=== PATIENT | female | born 1960 | race Hispanic/Latino ===

== ENCOUNTER → 2017-06-28 | Day surgery (SDC) | payer BC ==
[~2017-06-28] MED LIST: FENTANYL CITRATE/PF 100MCG/2 ML INJ ONE; HYOSCYAMINE SULFATE 0.5 MG/ML AMP ONE; LIDOCAINE HCL 2% LOCAL INJ 5 ML SDV VIAL INJ ONE; MIDAZOLAM HCL 2 MG/2 ML VIAL ONE; PROPOFOL IV EMULSION 10 MG/ML 50 ML VIAL ONE; Z.0.ATENOLOL25 MG PO; Z.0.PREMARIN0.625 MG PO; Z.0.SYNTHROID175 MCG PO; [UNRECOGNIZED DRUG - OTHER] PO
--- NOTE | 2017-06-29 04:45 | Operative Report ---
DATE OF PROCEDURE: June 28, 2017 REFERRING PHYSICIAN: Dr. Chikis Spencer. PROCEDURE PERFORMED: Esophagogastroduodenoscopy with biopsies. INDICATIONS FOR EGD: Upper abdominal pain, weight loss. MEDICATION: Patient was done under MAC. Please see anesthesiologist's note. PROCEDURE: With patient in left lateral decubitus position, flexible fiberoptic Olympus gastroscope was introduced into the esophagus under direct visualization without any difficulty. There were some patchy erythema noted in the distal esophagus. The scope was then advanced with ease into the stomach, traversing a small hiatal hernia. Mucosa overlying the antrum revealed some diffuse intense erythema and moderate to marked edema and biopsies were obtained and sent to stain for H. pylori. The mucosa overlying the body was primarily atrophic with some scattered islands of normal mucosa. Biopsies were obtained. The pylorus was of normal contour and shape. It was intubated with ease and the scope was advanced all way to the 2nd portion of the duodenum. The scope was then withdrawn slowly. Mucosa overlying the proximal 2nd portion and the duodenal bulb appeared to be within normal limits. The scope was then withdrawn back into the stomach and retroflexed. Mucosa overlying the fundus and the cardia appeared to be within normal limits. The scope was then straightened out. The stomach was decompressed. The scope was subsequently withdrawn. Patient tolerated the procedure well. IMPRESSIONS 1. Distal esophagitis, mild. 2. Small hiatal hernia. 3. Gastritis, antrum moderately severe, biopsied and sent to stain for Helicobacter pylori. 4. Atrophic gastritis, body. Biopsies were obtained. PLAN: Follow up histology. Initiate Protonix 40 mg 1 p.o. a.c. b.i.d. Carafate 1 g p.o. a.c. t.i.d. and nightly. Check antiparietal cell antibody and PAO. Job#: [id number] CF cc:CHIKIS SPENCER MD
== END | disposition home or self-care (01) ==
LOC: OR 11:20
PROVIDERS: ATTEND Internal Medicine Gastroenterology
DX: K29.50 Unspecified chronic gastritis without bleeding (principal); K63.5 Polyp of colon; K20.9 Esophagitis, unspecified; K21.9 Gastro-esophageal reflux disease without esophagitis; K44.9 Diaphragmatic hernia without obstruction or gangrene; R63.4 Abnormal weight loss; E03.9 Hypothyroidism, unspecified; I10 Essential (primary) hypertension; F32.9 Major depressive disorder, single episode, unspecified; Z01.810 Encounter for preprocedural cardiovascular examination
CPT/HCPCS: 43239; 86039; 93005; J1980; J2001; J2250

== ENCOUNTER → 2018-10-17 | Day surgery (SDC) | payer BC ==
[~2018-10-17] MED LIST changes: +DEXILANT60 MG PO; -HYOSCYAMINE SULFATE 0.5 MG/ML AMP ONE; +LEVOTHYROXINE100 MC1 PO; -LIDOCAINE HCL 2% LOCAL INJ 5 ML SDV VIAL INJ ONE
[2018-10-17 14:45] VITALS: BP 126/98
--- OUTSIDE RECORDS SUMMARY | 2018-10-19 15:47 | XMS REPORT | Summary of Care ---
Author Author [facility] Organization [facility] Address Unknown Phone Unavailable Encounter HQ David(FIN) [id number] Date(s): 06/27/17 - 07/26/17 [facility] [address] [place], [place] [address] [phone] Encounter Diagnosis Personal history of cervical dysplasia (Final) - 08/01/17 Hypothyroidism, unspecified (Final) - Discharge Disposition: Home or Self Care Attending Physician: Jessica Roldan MD Referring Physician: Jessica Roldan MD Vital Signs Most recent to 1 2 oldest [Reference Range]: Height 165 cm 166 cm (07/25/17 2:24 PM) (06/27/17 10:37 AM) Temperature Oral 97.9 DegF 97.9 DegF [96.4-99.1 DegF] (07/25/17 2:24 PM) (06/27/17 10:37 AM) Blood Pressure 115/78 mmHg 152/80 mmHg [90-140/60-90 mmHg] (07/25/17 2:24 PM) *HI* (06/27/17 10:37 AM) Respiratory Rate 20 BRMIN [14-20 BRMIN] (07/25/17 2:24 PM) Peripheral Pulse 67 bpm 57 bpm Rate [60-100 bpm] (07/25/17 2:24 PM) *LOW* (06/27/17 10:37 AM) Weight 69.636 kg 70.273 kg (07/25/17 2:24 PM) (06/27/17 10:37 AM) Body Mass Index 25.58 m2 25.5 m2 (07/25/17 2:24 PM) (06/27/17 10:37 AM) Problem List Condition Effective Dates Status Health Status Informant Anemia(Confirmed) Resolved Chronic Active gastritis(Confirmed) Thyroid Active disease(Confirmed) High blood Resolved pressure(Confirmed) Flu(Confirmed) Resolved Vaginal Active itching(Confirmed) Vaginal Active discharge(Confirmed) Vaginal Active discharge(Confirmed) Allergies, Adverse Reactions, Alerts Substance Reaction Severity Status penicillins Active vancomycin Active Medications dicyclomine 20 mg, PO, TID, 0 Refill(s) Start Date: 06/27/17 Status: Ordered dicyclomine 20 mg, 0 Refill(s) Start Date: 06/27/17 Status: Ordered hydrOXYzine 10 mg, PO, Bedtime, Three 10 mg tablets at bedtime, 0 Refill(s) Start Date: 06/27/17 Status: Ordered levothyroxine 200 mcg (0.2 mg) oral tablet 200 microgram=1 tab, PO, Every Other Day, 0 Refill(s) Start Date: 06/27/17 Status: Ordered naproxen 500 mg=1 tab, PO, BID, PRN Pain, 0 Refill(s) Start Date: 06/27/17 Status: Ordered nortriptyline 50 mg oral capsule 50 mg=1 cap, PO, Daily, 0 Refill(s) Start Date: 06/27/17 Status: Ordered spironolactone 25 mg oral tablet 25 mg=1 tab, PO, TID, 0 Refill(s) Start Date: 06/27/17 Status: Ordered Results No data available for this section Immunizations No data available for this section Procedures Procedure Date Related Diagnosis Body Site Status Upper GI endoscopy 06/28/17 Completed Hysterectomy Completed Social History Social History Type Response Substance Abuse Use: None. Alcohol Never Smoking Status Never smoker; Ready to change: No; Concerns about tobacco use in household: No; Exposure to Tobacco Smoke None; Cigarette Smoking Last 365 Days No; Reg Smoking Cessation Counseling No1 entered on: 09/26/17 1Pt has never smoked Assessment and Plan No data available for this section
--- OUTSIDE RECORDS SUMMARY | 2018-10-19 15:47 | XMS REPORT | Summary of Care ---
Author Organization Unknown Address Unknown Phone Unavailable Encounter HQ Encntr_alitrevor([facility]) [id number] Date(s): 12/02/14 - 12/02/14 [facility] Outpatient Imaging - [address] [address]- [facility] [phone] Discharge Disposition: Home Physician Attending: Sidney Ford MD Vital Signs No data available for this section Problem List No data available for this section Allergies, Adverse Reactions, Alerts No data available for this section Medications No data available for this section Results No data available for this section Immunizations No data available for this section Procedures No data available for this section Social History No data available for this section Assessment and Plan No data available for this section
--- OUTSIDE RECORDS SUMMARY | 2018-10-19 15:47 | XMS REPORT | Summary of Care ---
Author Author [facility] Organization [facility] Address Unknown Phone Unavailable Encounter HQ David(FIN) [id number] Date(s): 06/27/17 - 07/26/17 [facility] [address] [place], [place] [address] [place] [address] Encounter Diagnosis Personal history of cervical dysplasia [...]
--- OUTSIDE RECORDS SUMMARY | 2018-10-19 15:47 | XMS REPORT | Summary of Care ---
Author Author [facility] Address Unknown Phone Unavailable Encounter HQ Santantr_chiragtrevor([facility]) [id number] Date(s): 12/23/14 - 01/21/15 [facility] Discharge Disposition: Home Attending Physician: Sidney Ford MD Vital Signs No data [...]
--- OUTSIDE RECORDS SUMMARY | 2018-10-19 15:47 | XMS REPORT | Summary of Care ---
Author Organization Unknown Address Unknown Phone Unavailable Encounter HQ Santantr_lizzie([facility]) [id number] Date(s): 11/04/14 - 12/03/14 [facility] Discharge Disposition: Home Physician Attending: Sidney Ford [...]
--- OUTSIDE RECORDS SUMMARY | 2018-10-19 15:47 | XMS REPORT | Summary of Care ---
Author Author [facility] Organization [facility] Address Unknown Phone Unavailable Encounter HQ David(FIN) [id number] Date(s): 12/26/17 - 01/24/18 [facility] [address] [place], [place] [address] [phone] Encounter Diagnosis Encounter for screening mammogram for malignant neoplasm of breast (Final) - 01/29/18 Dysplasia of cervix uteri, unspecified (Final) - Hypothyroidism, unspecified (Final) - Discharge Disposition: Home or Self Care Attending Physician: Jessica Roldan MD Referring Physician: Jessica Roldan MD Vital Signs Most recent to 1 oldest [Reference Range]: Height 165.1 cm (12/26/17 2:22 PM) Temperature Oral 97.8 DegF [96.4-99.1 DegF] (12/26/17 2:22 PM) Blood Pressure 131/74 mmHg [90-140/60-90 mmHg] (12/26/17 2:22 PM) Respiratory Rate 18 BRMIN [14-20 BRMIN] (12/26/17 2:22 PM) Peripheral Pulse 64 bpm Rate [60-100 bpm] (12/26/17 2:22 PM) Weight 71.636 kg (12/26/17 2:22 PM) Body Mass Index 26.28 m2 (12/26/17 2:22 PM) Problem List Condition Effective Dates Status Health Status Informant Anemia(Confirmed) Resolved Chronic Active gastritis(Confirmed) Thyroid Active disease(Confirmed) High blood Resolved pressure(Confirmed) Flu(Confirmed) Resolved Vaginal Active itching(Confirmed) Vaginal Active discharge(Confirmed) Vaginal Active discharge(Confirmed) Vaginal Active discharge(Confirmed) Allergies, Adverse Reactions, Alerts Substance Reaction Severity Status penicillins Active vancomycin Active Medications Flagyl 500 mg oral tablet 500 mg=1 tab, PO, BID, X 7 day, # 14 tab, 0 Refill(s), Pharmacy: [facility] [id number] Start Date: 12/26/17 Stop Date: 01/02/18 Status: Completed fluconazole 150 mg oral tablet See Instructions, 1 tab PO ONCE a week x 6 months, # 4 tab, 5 Refill(s), Pharmac y: [facility] [id number] Start Date: 01/13/18 Status: Ordered Premarin 0.625 mg oral tablet 0.625 mg=1 tab, PO, Daily, # 90 tab, 3 Refill(s), Pharmacy: [facility] Start Date: 01/26/18 Status: Ordered Results IMMUNOLOGY Most recent to 1 oldest [Reference Range]: HPV Aptima Positive 1 [Negative] *ABN* (12/26/17 3:28 PM) 1Result Comment: This test detects fourteen high-risk HPV types (16/18/31/33/35/39/45/ 51/52/56/58/59/66/68) without differentiation. Source.............Cervix LMP / Prev Treat...None No. of containers..01 ThinPrep Vial Performed At: [facility] [id number] Manny Lujan MD Ph:[phone] Performed At: [place] [id number] [place], [place] [id number] Manny Lujan MD Ph:[phone] Immunizations No data available for this section [...] Reg Smoking Cessation Counseling No1 entered on: 12/26/17 1Pt has never smoked Assessment and Plan No data available for this section
--- OUTSIDE RECORDS SUMMARY | 2018-10-19 15:47 | XMS REPORT | Summary of Care ---
Author Author [facility] Organization [facility] Address Unknown Phone Unavailable Encounter CHERELLE Hernandez(CHRIS) [id number] Date(s): 09/26/17 - 10/25/17 [facility] [address] [facility] [address] [place], [place] [address] [place] [address] Discharge Disposition: Home or Self Care Attending Physician: Jessica Roldan MD Referring Physician: Jessica Roldan MD Vital Signs Most recent to 1 oldest [Reference Range]: Height 167 cm (09/26/17 12:31 PM) Temperature Oral 97.9 DegF [96.4-99.1 DegF] (09/26/17 12:31 PM) Blood Pressure 131/79 mmHg [90-140/60-90 mmHg] (09/26/17 12:31 PM) Respiratory Rate 18 BRMIN [14-20 BRMIN] (09/26/17 12:31 PM) Peripheral Pulse 73 bpm Rate [60-100 bpm] (09/26/17 12:31 PM) Weight 70.636 kg (09/26/17 12:31 PM) Body Mass Index 25.33 m2 (09/26/17 12:31 PM) Problem List Condition Effective Dates Status Health Status Informant Anemia(Confirmed) Resolved Chronic Active gastritis(Confirmed) Thyroid Active disease(Confirmed) High blood Resolved pressure(Confirmed) Flu(Confirmed) Resolved Vaginal Active itching(Confirmed) Vaginal Active discharge(Confirmed) Vaginal Active discharge(Confirmed) Allergies, Adverse Reactions, Alerts Substance Reaction Severity Status penicillins Active vancomycin Active Medications fluconazole 150 mg oral tablet See Instructions, 1 tab PO ONCE a week x 6 months, # 4 tab, 5 Refill(s), Pharmac y: [facility] [id number] Start Date: 08/29/17 Status: Ordered Results No data available for [...]
--- OUTSIDE RECORDS SUMMARY | 2018-10-19 15:47 | XMS REPORT | Summary of Care ---
Author Organization Unknown Address Unknown Phone Unavailable Encounter HQ Encntr_alias([facility]) [id number] Date(s): 12/21/14 - 12/21/14 [facility] Outpatient Imaging [address] [phone] Discharge Disposition: Home Physician Attending: Danis Thakkar MD Vital Signs No data available for [...]
--- OUTSIDE RECORDS SUMMARY | 2018-10-19 15:47 | XMS REPORT | Summary of Care ---
Author Author [facility] Organization [facility] Address Unknown Phone Unavailable Encounter CHERELLE Hernandez(CHRIS) [id number] Date(s): 09/26/17 - 10/25/17 [facility] [address] [facility] [address] [place], [place] [address] [phone] Discharge Disposition: Home or Self Care Attending [...] # 4 tab, 5 Refill(s), Pharmac y: [facility] [id number] Start Date: 08/29/17 Status: Ordered Results No [...]
--- OUTSIDE RECORDS SUMMARY | 2018-10-19 15:47 | XMS REPORT | Summary of Care ---
Author Author [facility] Organization [facility] Address Unknown Phone Unavailable Encounter CHERELLE Hernandez(CHRIS) [id number] Date(s): 03/31/17 - 04/29/17 [facility] [address] [facility] [address] [facility] [place] [address]- [facility] [phone] Discharge Disposition: Home or Self Care Attending Physician: Jessica Roldan MD Referring Physician: Jessica Roldan MD Vital Signs Most recent to 1 2 oldest [Reference Range]: Height 167.2 cm 167.2 cm (04/21/17 8:43 AM) (03/31/17 10:54 AM) Temperature Oral 98.0 DegF 98.1 DegF [96.4-99.1 DegF] (04/21/17 8:43 AM) (03/31/17 10:54 AM) Blood Pressure 149/86 mmHg 133/86 mmHg [90-140/60-90 mmHg] *HI* (03/31/17 10:54 AM) (04/21/17 8:43 AM) Respiratory Rate 18 BRMIN 18 BRMIN [14-20 BRMIN] (04/21/17 8:43 AM) (03/31/17 10:54 AM) Peripheral Pulse 60 bpm 80 bpm Rate [60-100 bpm] (04/21/17 8:43 AM) (03/31/17 10:54 AM) Weight 69.273 kg 69.909 kg (04/21/17 8:43 AM) (03/31/17 10:54 AM) Body Mass Index 24.78 m2 25.01 m2 (04/21/17 8:43 AM) (03/31/17 10:54 AM) Problem List Condition Effective Dates Status Health Status Informant Anemia(Confirmed) Resolved Chronic Resolved gastritis(Confirmed) Thyroid Resolved disease(Confirmed) High blood Resolved pressure(Confirmed) Vaginal Active itching(Confirmed) Vaginal Active discharge(Confirmed) Allergies, Adverse Reactions, Alerts Substance Reaction Severity Status penicillins Active vancomycin Active Medications Diflucan 150 mg oral tablet 150 mg=1 tab, PO, ONCE, # 1 tab, 0 Refill(s), Pharmacy: [id number] Start Date: 03/31/17 Stop Date: 04/25/17 Status: Completed fluconazole 150 mg oral tablet See Instructions, 1 tab PO ONCE a week x 6 months, # 4 tab, 5 Refill(s), called to pharmacy Start Date: 04/25/17 Status: Ordered Results No data available for this section Immunizations No data available for this section Procedures Procedure Date Related Diagnosis Body Site Hysterectomy Social History Social History Type Response Smoking Status Never smoker; Ready to change: No; Concerns about tobacco use in household: No; Exposure to Tobacco Smoke None; Cigarette Smoking Last 365 Days No; Reg Smoking Cessation Counseling No1 1Pt has never smoked Assessment and Plan No data available for this section
--- OUTSIDE RECORDS SUMMARY | 2018-10-19 15:47 | XMS REPORT ---
Author Author [facility] Address Unknown Phone Unavailable Care Team Providers Care Technical Applications Scientist Name Role Phone REGINALD PETERSON Unavailable Unavailable Problems This patient has no known problems. Allergies, Adverse Reactions, Alerts This patient has no known allergies or adverse reactions. Medications This patient has no known medications. Results Test Description Test Time Test Comments Text Results Atomic Results Result Comments SMALL BOWEL SERIES [place] [address] Patient Name: YENNY SPENCER MR #: [id number] : 1960 Age/Sex: 56/F Req #: [id number] Adm Physician: Ordered by: REGINALD PETERSON MD Report #: [id number] Location: DX Room/Bed: Procedure: [id number] DX/SMALL BOWEL SERIES Exam Date: 05/30/17 Exam Time: 0715 REPORT STATUS: Signed Small bowel series, June 19, 2017 Clinical history: Weight loss; abdominal pain Comparison: None Technique: Single-contrast small bowel follow-through. Fluoroscopy time: 0.9 minutes; cumulative air kerma: 10.99 mGy Findings: [employer]ers: Normal Small bowel caliber, mucosal contour and air cells are normal. No evidence of ulcer, mass or fistula. Normal appendix. Small D2 segment duodenal diverticulum. Impression: Small duodenal diverticulum. Otherwise, normal small bowel follow-through. This report was generated with voice-recognition technology. Errors in residential housekeeper can occur. Please interpret accordingly and contact a radiologist if there are any questions regarding the report. Signed by: Dr. Elina White M.D. on 05/30/2017 9:29 AM Dictated By: ELINA WHITE MD 8 Transcribed By: MIKE on 05/30/17928 COPY TO: REGINALD PETERSON MD CT ABDOMEN/PELVIS W [place] [address] Patient Name: YENNY SPENCER MR #: [id number] : 1960 Age/Sex: 56/F Req #: [id number] Adm Physician: Ordered by: REGINALD PETERSON MD Report #: [id number] Location: CT Room/Bed: Procedure: [id number] CT/CT ABDOMEN/PELVIS W Exam Date: 05/16/17 Exam Time: 1500 REPORT STATUS: Signed PROCEDURE: CT ABDOMEN AND PELVIS WITH CONTRAST TECHNIQUE: The abdomen and pelvis were scanned utilizing a multidetector helical scanner from the diaphragm to the lesser trochanter after the IV administration of 100 cc of Isovue 370 and the oral administration of water. Coronal and sagittal multiplanar reformations were obtained. COMPARISON: None. INDICATIONS: Mid and lower ABDOMINAL PAIN for 2 years, worsening in the last 4 months, WEIGHT LOSS FINDINGS: LOWER THORAX: Lung bases are clear. HEPATOBILIARY: Decreased attenuation of the hepatic parenchyma compared to the spleen, consistent with fatty infiltration. No focal lesions. No biliary ductal dilation. Gallbladder is unremarkable. SPLEEN: No splenomegaly. PANCREAS: No ductal dilatation. 4-6 mm curvilinear structure in the pancreatic head (series 2, image 24, and sagittal image 67), which measures near fat density. No other focal lesions. ADRENALS: No adrenal nodules. KIDNEYS/URETERS: No hydronephrosis, stones, or solid mass lesions. PELVIC ORGANS/BLADDER: Bladder is unremarkable. Uterus is absent. No adnexal masses. PERITONEUM / RETROPERITONEUM: No free air or fluid. LYMPH NODES: No lymphadenopathy. VESSELS: Unremarkable. GI TRACT: No bowel dilation or evidence of obstruction. No pericolic inflammatory changes. BONES AND SOFT TISSUES: Mild degenerative disc changes at L4-L5. Soft tissues are grossly unremarkable. IMPRESSION: 1. no acute abdominopelvic abnormalities. 2. Diffuse hepatic steatosis. No focal lesions. 3. 4-6 mm curvilinear structure in the pancreatic head measures near fat density and probably represents a small lipoma. No other focal lesions or any ductal dilation. Charly England M.D. Dictated by: Charly figueredo M.D. on 05/16/2017 at 16:14 Electronically approved by: Charly England M.D. on 05/16/2017 at 16:14 Dictated By: CHARLY ENGLAND MD [id number] Transcribed By: ASHTYN on 05/16/17 1614 COPY TO: REGINALD PETERSON MD
--- OUTSIDE RECORDS SUMMARY | 2018-10-19 15:47 | XMS REPORT | Continuity of Care Document ---
Author Author [facility] Interface Address Unknown Phone Unavailable Problems Problem Status Onset Date Classification Date Reported Comments Source Encounter for screening mammogram for malignant neoplasm of breast 01/30/2018 08/13/2018 [facility] FOLLOW UP Active 10/15/2017 [facility] Personal history of cervical dysplasia 08/02/2017 11/01/2017 [facility] LAB- FU Active 07/25/2017 [facility] ICHING Active 12/02/2016 [facility] 719.47 - JOINT PAIN-ANKL Active 12/20/2014 [facility] LT FOOT Active 10/19/2014 [facility] Anemia Resolved Problem 08/13/2018 [facility] Chronic gastritis Active Problem 08/13/2018 [facility] Thyroid disease Active Problem 08/13/2018 [facility] High blood pressure Resolved Problem 08/13/2018 [facility] Flu Resolved Problem 08/13/2018 [facility] Vaginal itching Active Problem 08/13/2018 [facility] Vaginal discharge Active Problem 08/13/2018 [facility] Hypothyroidism, unspecified 08/13/2018 [facility] Dysplasia of cervix uteri, unspecified 08/13/2018 [facility] PLANTAR FASC Active [facility] Medications Medication Details Route Status Patient Instructions Ordering Provider Order Date Source Estrogens, Conjugated (RETIREMENT) 0.625 MG Oral Tablet [Premarin] 0.625 mg=1 tab, PO, Daily, # 90 tab, 3 Refill(s), Pharmacy: [facility] Active 01/26/2018 [facility] fluconazole 150 mg oral tablet See Instructions, 1 tab PO ONCE a week x 6 months, # 4 tab, 5 Refill(s), Pharmacy: [facility] [id number] Active 01/13/2018 [facility] Metronidazole 500 MG Oral Tablet [Flagyl] 500 mg=1 tab, PO, BID, X 7 day, # 14 tab, 0 Refill(s), Pharmacy: [facility] [id number] No Longer Active 12/26/2017 [facility] fluconazole 150 mg oral tablet See Instructions, 1 tab PO ONCE a week x 6 months, # 4 tab, 5 Refill(s), Pharmacy: [facility] [id number] Active 08/29/2017 [facility] levothyroxine 200 mcg (0.2 mg) oral tablet 200 microgram=1 tab, PO, Every Other Day, 0 Refill(s) Active 06/27/2017 [facility] spironolactone 25 mg oral tablet 25 mg=1 tab, PO, TID, 0 Refill(s) Active 06/27/2017 [facility] Hydroxyzine 10 mg, PO, Bedtime, Three 10 mg tablets at bedtime, 0 Refill(s) Active 06/27/2017 [facility] Naproxen 500 mg=1 tab, PO, BID, PRN Pain, 0 Refill(s) Active 06/27/2017 [facility] Dicyclomine 20 mg, PO, TID, 0 Refill(s) Active 06/27/2017 [facility] nortriptyline 50 mg oral capsule 50 mg=1 cap, PO, Daily, 0 Refill(s) Active 06/27/2017 [facility] fluconazole 150 mg oral tablet See Instructions, 1 tab PO ONCE a week x 6 months, # 4 tab, 5 Refill(s), called to pharmacy Active 04/25/2017 [facility] Diflucan 150 mg oral tablet 150 mg=1 tab, PO, ONCE, # 1 tab, 0 Refill(s), Pharmacy: [facility] [id number] No Longer Active 03/31/2017 [facility] Nortriptyline 50 MG Oral Capsule [Pamelor] 50 mg=1 cap, PO, TID, 0 Refill(s) Active 12/16/2016 [facility] Estrogens, Conjugated (RETIREMENT) 0.625 MG Oral Tablet [Premarin] 0.625 mg=1 tab, PO, Daily, # 30 tab, 0 Refill(s) Active 12/16/2016 [facility] Synthroid PO, Daily, 0 Refill(s) Active 12/16/2016 [facility] Atenolol 25 MG Oral Tablet 25 mg=1 tab, PO, Daily, # 30 tab, 0 Refill(s) Active 12/16/2016 [facility] pantoprazole 40 MG Enteric Coated Tablet [Protonix] 40 mg=1 tab, PO, Daily, # 30 tab, 0 Refill(s) Active 12/16/2016 [facility] Allergies, Adverse Reactions, Alerts Substance Category Reaction Severity Reaction type Status Date Reported Comments Source penicillins Assertion Drug allergy Active [facility] vancomycin Assertion Drug allergy Active [facility] Immunizations Immunization Date Given Site Status Last Updated Comments Source Results Order Name Results Value Reference Range Date Interpretation Comments Source IMMUNOLOGY HPV Aptima Positive Negative 12/26/2017 Result Comment: This test detects fourteen high-risk HPV types (16/18/31/33/35/39/45/ 51/52/56/58/59/66/68) without differentiation. Source.............Cervix LMP / Prev Treat...None No. of containers..01 ThinPrep Vial Performed At: [address] [id number] Manny Lujan MD Ph:[phone] Performed At: [address] [id number] Manny Lujan MD Ph:[phone] [facility] Foot series DX Foot series DX EXAM: XR LEFT FOOT 3 VIEWS DATE: 12/21/2014 at 1449 hours INDICATION: 719.47 Pain in Joint Involving Ankle and Foot COMPARISON: None available. TECHNIQUE: AP, lateral and oblique radiographs of the left foot FINDINGS: No fracture, dislocation or other acute bony abnormality is identified. Joint spaces and bone mineral density are preserved. There is an incidental type I os navicularis. There is minimal enthesophyte formation at the Achilles insertion. No soft tissue abnormality is identified. IMPRESSION: No bony abnormality identified. 12/21/2014 - - Read by: Tamia Mcghee MD Dictated Date/time: 12/21/14 19:20 Electronically Signed by: Tamia Mcghee MD 12/21/14 19:21 FINAL REPORT [facility] Gonzalez Vital Signs Vital Sign Value Date Comments Source BMI Calculated 26.28 12/26/2017 [facility] Weight 71.636 12/26/2017 [facility] Height 165.1 cm 12/26/2017 [facility] Temperature Oral (F) 97.8 F 12/26/2017 [facility] Respitory Rate 18 12/26/2017 [facility] Systolic (mm Hg) 131 12/26/2017 [facility] Diastolic (mm Hg) 74 12/26/2017 [facility] Heart Rate 64 12/26/2017 [facility] Height 167 cm 09/26/2017 [facility] BMI Calculated 25.33 09/26/2017 [facility] Weight 70.636 09/26/2017 [facility] Respitory Rate 18 09/26/2017 [facility] Systolic (mm Hg) 131 09/26/2017 [facility] Diastolic (mm Hg) 79 09/26/2017 [facility] Temperature Oral (F) 97.9 F 09/26/2017 [facility] Heart Rate 73 09/26/2017 [facility] BMI Calculated 25.58 07/25/2017 [facility] Height 165 cm 07/25/2017 [facility] Weight 69.636 07/25/2017 [facility] Heart Rate 67 07/25/2017 [facility] Temperature Oral (F) 97.9 F 07/25/2017 [facility] Respitory Rate 20 07/25/2017 [facility] Systolic (mm Hg) 115 07/25/2017 [facility] Diastolic (mm Hg) 78 07/25/2017 [facility] Height 166 cm 06/27/2017 [facility] BMI Calculated 25.5 06/27/2017 [facility] Weight 70.273 06/27/2017 [facility] Temperature Oral (F) 97.9 F 06/27/2017 [facility] Heart Rate 57 06/27/2017 [facility] Systolic (mm Hg) 152 06/27/2017 [facility] Diastolic (mm Hg) 80 06/27/2017 [facility] Height 167.2 cm 04/21/2017 [facility] BMI Calculated 24.78 04/21/2017 [facility] Weight 69.273 04/21/2017 [facility] Respitory Rate 18 04/21/2017 [facility] Temperature Oral (F) 98.0 F 04/21/2017 [facility] Heart Rate 60 04/21/2017 [facility] Systolic (mm Hg) 149 04/21/2017 [facility] Diastolic (mm Hg) 86 04/21/2017 [facility] BMI Calculated 25.01 03/31/2017 [facility] Weight 69.909 03/31/2017 [facility] Height 167.2 cm 03/31/2017 [facility] Temperature Oral (F) 98.1 F 03/31/2017 [facility] Respitory Rate 18 03/31/2017 [facility] Heart Rate 80 03/31/2017 [facility] Systolic (mm Hg) 133 03/31/2017 [facility] Diastolic (mm Hg) 86 03/31/2017 [facility] Heart Rate 62 12/16/2016 [facility] Respitory Rate 18 12/16/2016 [facility] Height 167.2 cm 12/16/2016 [facility] Temperature Oral (F) 98.0 F 12/16/2016 [facility] Weight 70.545 12/16/2016 [facility] BMI Calculated 25.23 12/16/2016 [facility] Systolic (mm Hg) 137 12/16/2016 [facility] Diastolic (mm Hg) 84 12/16/2016 [facility] Encounters Location Location Details Encounter Type Encounter Number Reason For Visit Attending Provider ADM Date DC Date Status Source [facility] [id number] C Logan 11/04/2014 12/04/2014 [facility] [id number] Sidney Ford 12/02/2014 12/03/2014 [facility] [id number] Danis Thakkar 12/21/2014 12/22/2014 [facility] [id number] Sidney Ford 12/23/2014 01/22/2015 [facility] [place] [place] Recurring [id number] Lopez Melendez-Arrastia 12/16/2016 01/15/2017 [facility] On[facility] [place] [place] Recurring [id number] Lopez Melendez-Arrastia 03/31/2017 04/30/2017 [facility] On[facility] [place] [place] Recurring [id number] Lopez Melendez-Arrastia 06/27/2017 07/27/2017 [facility] On[facility] [place] [place] Recurring [id number] Lopez Melendez-Arrastia 09/26/2017 10/26/2017 [facility] Recurring [id number] Lopez Melendez-Arrastia 12/26/2017 01/25/2018 [facility] Procedures Procedure Code Date Perfomer Comments Source Upper GI endoscopy [id number] 06/28/2017 [facility] Hysterectomy [id number] [facility]
--- OUTSIDE RECORDS SUMMARY | 2018-10-19 15:47 | XMS REPORT | Summary of Care ---
Author Author [facility] Organization [facility] Address Unknown Phone Unavailable Encounter CHERELLE Hernandez(CHRIS) [id number] Date(s): 12/16/16 - 01/14/17 [facility] [address] [place], [place] [id number] [place] [address] Discharge Disposition: Home or Self Care Attending Physician: Jessica Roldan MD Referring Physician: Jessica Roldan MD Vital Signs Most recent to 1 oldest [Reference Range]: Height 167.2 cm (12/16/16 3:13 PM) Temperature Oral 98.0 DegF [96.4-99.1 DegF] (12/16/16 3:13 PM) Blood Pressure 137/84 mmHg [90-140/60-90 mmHg] (12/16/16 3:13 PM) Respiratory Rate 18 BRMIN [14-20 BRMIN] (12/16/16 3:13 PM) Peripheral Pulse 62 bpm Rate [60-100 bpm] (12/16/16 3:13 PM) Weight 70.545 kg (12/16/16 3:13 PM) Body Mass Index 25.23 m2 (12/16/16 3:13 PM) Problem List Condition Effective Dates Status Health Status Informant Anemia(Confirmed) Resolved Chronic Resolved gastritis(Confirmed) Thyroid Resolved disease(Confirmed) High blood Resolved pressure(Confirmed) Allergies, Adverse Reactions, Alerts Substance Reaction Severity Status penicillins Active vancomycin Active Medications atenolol 25 mg oral tablet 25 mg=1 tab, PO, Daily, # 30 tab, 0 Refill(s) Start Date: 12/16/16 Status: Ordered Pamelor 50 mg oral capsule 50 mg=1 cap, PO, TID, 0 Refill(s) Start Date: 12/16/16 Status: Ordered Premarin 0.625 mg oral tablet 0.625 mg=1 tab, PO, Daily, # 30 tab, 0 Refill(s) Start Date: 12/16/16 Status: Ordered Protonix 40 mg oral enteric coated tablet 40 mg=1 tab, PO, Daily, # 30 tab, 0 Refill(s) Start Date: 12/16/16 Status: Ordered Synthroid PO, Daily, 0 Refill(s) Start Date: 12/16/16 Status: Ordered Results No data available for this section Immunizations No data available for this section Procedures Procedure Date Related Diagnosis Body Site Hysterectomy Social History Social History Type Response Smoking Status Never smoker; Ready to change: No; Concerns about tobacco use in household: No; Exposure to Tobacco Smoke None; Cigarette Smoking Last 365 Days No; Reg Smoking Cessation Counseling No Assessment and Plan No data available for this section
== END | disposition home or self-care (01) ==
LOC: OR 09:24
PROVIDERS: ATTEND Internal Medicine Gastroenterology
DX: K29.40 Chronic atrophic gastritis without bleeding (principal); K31.89 Other diseases of stomach and duodenum; K21.0 Gastro-esophageal reflux disease with esophagitis; K44.9 Diaphragmatic hernia without obstruction or gangrene; I10 Essential (primary) hypertension; I34.1 Nonrheumatic mitral (valve) prolapse; E03.9 Hypothyroidism, unspecified; Z88.1 Allergy status to other antibiotic agents; Z88.0 Allergy status to penicillin; Z01.810 Encounter for preprocedural cardiovascular examination; Z68.27 Body mass index [BMI] 27.0-27.9, adult
CPT/HCPCS: 43239; 93005; J2250; J2704

== ENCOUNTER → 2021-03-03 | Day surgery (SDC) | payer BC ==
[~2021-03-03] MED LIST changes: -FENTANYL CITRATE/PF 100MCG/2 ML INJ ONE; +HYOSCYAMINE SULFATE 0.5 MG/ML INJ ONE; -MIDAZOLAM HCL 2 MG/2 ML VIAL ONE; +MINOXIDIL2.5 MG PO; +OMEPRAZOLE40 MG PO; +PAMELOR25 MG PO; +PROPOFOL IV EMULSION 10 MG/ML 20 ML VIAL ONE; -PROPOFOL IV EMULSION 10 MG/ML 50 ML VIAL ONE; +SUCRALFATE1 GM PO
[2021-03-03 10:15] VITALS: BP 145/81
== END | disposition home or self-care (01) ==
LOC: OR 06:13
PROVIDERS: ATTEND Internal Medicine Gastroenterology
DX: K29.50 Unspecified chronic gastritis without bleeding (principal); K62.1 Rectal polyp; K31.7 Polyp of stomach and duodenum; K31.89 Other diseases of stomach and duodenum; K44.9 Diaphragmatic hernia without obstruction or gangrene; K21.9 Gastro-esophageal reflux disease without esophagitis; K64.8 Other hemorrhoids; I10 Essential (primary) hypertension; E03.9 Hypothyroidism, unspecified; R00.1 Bradycardia, unspecified; I34.1 Nonrheumatic mitral (valve) prolapse; F32.9 Major depressive disorder, single episode, unspecified; Z88.6 Allergy status to analgesic agent; Z88.1 Allergy status to other antibiotic agents; Z88.0 Allergy status to penicillin; Z01.810 Encounter for preprocedural cardiovascular examination; Z01.812 Encounter for preprocedural laboratory examination; Z20.822 Contact with and (suspected) exposure to COVID-19
CPT/HCPCS: 43239; 45380; 93005; J1980; J2704; U0002; 45378